=== PATIENT | female | born 1965 | race African-American/Black ===

== ENCOUNTER 2017-11-11 07:06 | Inpatient (IN) ==
[2017-11-11] MEDS ORDERED: ONDANSETRON 4 MG/2 ML VIAL IV STA (07:38)
[2017-11-11] MEDS ORDERED: MORPHINE 4 MG/1 ML VIAL IV STA (07:38)
[2017-11-11 08:30] LABS: Basophils # 0.1 10*3/uL (0.0-0.2); Basophils % 0.5 % (0.0-0.8); Eosinophils # 0.1 10*3/uL (0.0-0.87); Eosinophils % 0.6 % (0.00-10.9); Hematocrit 50.6 VOL% (35.7-47.0); Hemoglobin 16.2 GM/DL (12.0-16.0); Immature Granulocytes Absolute 0.15 #; Mean Corpuscular Hemoglobin 28 PG (27-34); Mean Corpuscular Volume 87.1 FL (87-102); Mean Platelet Volume 10.1 FL (9.6-12.0); Monocytes # 1.3 10*3/uL (0.11-0.8); NRBC # 0.02 10*3/uL; Neutrophils # 11.8 10*3/uL (1.4-7.4); Neutrophils % 81.9 % (38.7-73.9); Platelet Count 228 T/CUMM (130-400); Red Blood Count 5.81 MC/CUMM (3.8-5.5); Red Cell Distribution Width 21.8 % (9.3-17.3); White Blood Count 14.4 T/CUMM (4-12)
[2017-11-11 08:48] LABS: Albumin 2.3 G/DL (3.4-5.0); Apearance,Urine CLOUDY (Clear); Bacteria,Urine Many /HPF (Few); Bilirubin,Total 0.6 MG/DL (0.2-1.0); Bilirubin,Urine Negative (Negative); Blood, Urine Small mg/dL (Negative); Calcium 9.1 MG/DL (8.5-10.1); Glucose,Urine (UA) Negative (Negative); Granular Casts,Urine 35 /LPF (0-1); Ketones,Urine Negative (Negative); Nitrite,Urine Positive (Negative); Osmolality,Calculated 284.8 MOS/KG (273-304); Potassium 5.2 MMOL/L (3.5-5.1); Protein,Urine 100 MG/DL; RBC,Urine 16 /HPF (0-4); Total Protein 7.7 G/DL (6.4-8.3); Urine Color Yellow (Yellow); Urine Urobilinogen < 2.0 EU/DL (0.2-1.0); WBC,Urine 585 /HPF (0-6)
[2017-11-11 08:52] LABS: Eosinophils 1 % (0-10); Hypochromasia Slight; Lymphocytes 8 % (20-55); Microcytosis Slight; Platelet Estimate Adequate; Segmented Neutrophils 85 % (50-85); Total Cells Counted 100
[2017-11-11] MEDS ORDERED: NICOTINE 21 MG/24 HR PATCH TRANSDERM PRN (09:25)
[2017-11-11] MEDS ORDERED: PROMETHAZINE 25 MG/1 ML VIAL IM PRN (09:25)
[2017-11-11] MEDS ORDERED: ONDANSETRON 4 MG/2 ML VIAL IV PRN (09:25)
[2017-11-11] MEDS ORDERED: ACETAMINOPHEN 325 MG TABLET PO PRN (09:25)
[2017-11-11] MEDS ORDERED: diphenhydrAMINE CAP 25 MG CAPSULE PO PRN (09:25)
[2017-11-11] MEDS ORDERED: LEVOFLOXACIN INJ 500 MG in PREMIX 1 EACH IV STA (09:28)
[2017-11-11] MEDS ORDERED: LEVOFLOXACIN INJ 100 ML IV ONE (10:18)
[2017-11-11] MEDS: SODIUM CHLORIDE 0.9% 1,000 ML IV SCH (11:45)
[2017-11-11] MEDS: PANTOPRAZOLE 40 MG TABLET PO SCH (11:45)
[2017-11-11] MEDS: ENOXAPARIN 30 MG/0.3 ML SYRINGE SUBCUT SCH (11:45)
[2017-11-11] MEDS: FUROSEMIDE 40 MG TABLET PO SCH (16:03)
[2017-11-11] MEDS: CARVEDILOL 25 MG TABLET PO SCH (20:32)
[2017-11-11] MEDS ORDERED: POTASSIUM CHLORIDE 20 MEQ TABLET PO SCH (21:00)
[2017-11-12 05:52] LABS: Basophils # 0.1 10*3/uL (0.0-0.2); Basophils % 0.3 % (0.0-0.8); Eosinophils % 0.1 % (0.00-10.9); Hematocrit 46.9 VOL% (35.7-47.0); Immature Granulocytes % 1.1 %; Immature Granulocytes Absolute 0.19 #; Lymphocytes # 1.1 10*3/uL (1.4-4.0); Lymphocytes % 6.5 % (21.3-54.2); Mean Corpuscular Hemoglobin 28 PG (27-34); Mean Corpuscular Volume 86.5 FL (87-102); Monocytes # 1.5 10*3/uL (0.11-0.8); Monocytes % 8.8 % (1.7-12.7); Neutrophils # 14.6 10*3/uL (1.4-7.4); Neutrophils % 83.2 % (38.7-73.9); Platelet Count 225 T/CUMM (130-400); Red Blood Count 5.42 MC/CUMM (3.8-5.5); Red Cell Distribution Width 21.9 % (9.3-17.3); White Blood Count 17.5 T/CUMM (4-12)
[2017-11-12 06:30] LABS: Alanine Aminotransferase < 6 U/L (13-56); Alkaline Phosphatase 111 U/L (45-117); Aspartate Amino Transferase 8 U/L (0-37); Blood Urea Nitrogen 46 MG/DL (7-18); Calcium 8.6 MG/DL (8.5-10.1); Glucose 100 MG/DL (74-106); Potassium 5.6 MMOL/L (3.5-5.1); Sodium 136 MMOL/L (136-145); Total Protein 6.9 G/DL (6.4-8.3)
[2017-11-12 06:37] LABS: Band Neutrophils 3 % (0-10); Lymphocytes 7 % (20-55); Segmented Neutrophils 86 % (50-85); Total Cells Counted 100
[2017-11-12 06:38] LABS: Hypochromasia 1+; Microcytosis 1+
[2017-11-12 06:39] LABS: Platelet Estimate Adequate
[2017-11-12] MEDS: ASPIRIN CHEW 81 MG TABLET PO SCH (08:24)
[2017-11-12] MEDS: CARVEDILOL 25 MG TABLET PO SCH ×2 (08:24→20:54)
[2017-11-12] MEDS: PANTOPRAZOLE 40 MG TABLET PO SCH (08:24)
[2017-11-12] MEDS: FUROSEMIDE 40 MG TABLET PO SCH ×2 (08:25→15:09)
[2017-11-12] MEDS: DOXAZOSIN 1 MG TABLET PO SCH (08:25)
[2017-11-12] MEDS: ISOSORBIDE MONONITRATE 60 MG TABLET PO SCH (08:25)
[2017-11-12] MEDS: LEVOFLOXACIN INJ 250 MG in PREMIX 1 EACH IV SCH (08:28)
[2017-11-12] MEDS: ENOXAPARIN 30 MG/0.3 ML SYRINGE SUBCUT SCH (08:30)
[2017-11-12] MEDS: SODIUM CHLORIDE 0.9% 1,000 ML IV SCH (17:34)
[2017-11-13] MEDS: SODIUM CHLORIDE 0.9% 1,000 ML IV SCH ×2 (05:09→19:30)
[2017-11-13] MEDS: ISOSORBIDE MONONITRATE 60 MG TABLET PO SCH (11:31)
[2017-11-13] MEDS: PANTOPRAZOLE 40 MG TABLET PO SCH (11:31)
[2017-11-13] MEDS: DOXAZOSIN 1 MG TABLET PO SCH (11:31)
[2017-11-13] MEDS: FUROSEMIDE 40 MG TABLET PO SCH ×2 (11:31→17:53)
[2017-11-13] MEDS: ENOXAPARIN 30 MG/0.3 ML SYRINGE SUBCUT SCH (11:32)
[2017-11-13] MEDS: CARVEDILOL 25 MG TABLET PO SCH ×2 (11:32→20:58)
[2017-11-13] MEDS: ASPIRIN CHEW 81 MG TABLET PO SCH (11:33)
[2017-11-13 13:01] LABS: Basophils % 0.2 % (0.0-0.8); Eosinophils % 0.2 % (0.00-10.9); Hematocrit 44.6 VOL% (35.7-47.0); Hemoglobin 14.4 GM/DL (12.0-16.0); Immature Granulocytes % 1.5 %; Immature Granulocytes Absolute 0.28 #; Lymphocytes # 1.3 10*3/uL (1.4-4.0); Lymphocytes % 6.9 % (21.3-54.2); Mean Corpuscular HGB Conc 32.3 GM/DL (32-36); Mean Corpuscular Hemoglobin 28 PG (27-34); Mean Corpuscular Volume 85.9 FL (87-102); Mean Platelet Volume 9.3 FL (9.6-12.0); Monocytes # 1.5 10*3/uL (0.11-0.8); NRBC # 0.07 10*3/uL; Neutrophils # 15.6 10*3/uL (1.4-7.4); Neutrophils % 83.2 % (38.7-73.9); Platelet Count 221 T/CUMM (130-400); Red Blood Count 5.19 MC/CUMM (3.8-5.5); Red Cell Distribution Width 21.1 % (9.3-17.3); White Blood Count 18.8 T/CUMM (4-12)
[2017-11-13 13:19] LABS: Calcium 8.2 MG/DL (8.5-10.1); Osmolality,Calculated 280.4 MOS/KG (273-304); Potassium 5.5 MMOL/L (3.5-5.1)
[2017-11-14 05:59] LABS: Basophils % 0.3 % (0.0-0.8); Eosinophils # 0.1 10*3/uL (0.0-0.87); Eosinophils % 0.3 % (0.00-10.9); Hematocrit 41.5 VOL% (35.7-47.0); Hemoglobin 13.8 GM/DL (12.0-16.0); Immature Granulocytes % 1.5 %; Immature Granulocytes Absolute 0.23 #; Lymphocytes # 1.2 10*3/uL (1.4-4.0); Lymphocytes % 7.4 % (21.3-54.2); Mean Corpuscular HGB Conc 33.3 GM/DL (32-36); Mean Corpuscular Hemoglobin 28 PG (27-34); Mean Corpuscular Volume 83.5 FL (87-102); Mean Platelet Volume 10.6 FL (9.6-12.0); Monocytes # 1.3 10*3/uL (0.11-0.8); NRBC # 0.04 10*3/uL; Neutrophils # 13.1 10*3/uL (1.4-7.4); Neutrophils % 82.5 % (38.7-73.9); Platelet Count 250 T/CUMM (130-400); Red Blood Count 4.97 MC/CUMM (3.8-5.5); White Blood Count 15.8 T/CUMM (4-12)
[2017-11-14 06:23] LABS: Calcium 8.6 MG/DL (8.5-10.1); Osmolality,Calculated 283.1 MOS/KG (273-304); Potassium 4.9 MMOL/L (3.5-5.1)
[2017-11-14] MEDS: ISOSORBIDE MONONITRATE 60 MG TABLET PO SCH (10:07)
[2017-11-14] MEDS: DOXAZOSIN 1 MG TABLET PO SCH (10:07)
[2017-11-14] MEDS: PANTOPRAZOLE 40 MG TABLET PO SCH (10:07)
[2017-11-14] MEDS: CARVEDILOL 25 MG TABLET PO SCH ×2 (10:08→21:19)
[2017-11-14] MEDS: LEVOFLOXACIN INJ 250 MG in PREMIX 1 EACH IV SCH (10:08)
[2017-11-14] MEDS: ENOXAPARIN 30 MG/0.3 ML SYRINGE SUBCUT SCH (10:08)
[2017-11-14] MEDS: FUROSEMIDE 40 MG TABLET PO SCH ×2 (10:11→15:03)
[2017-11-14] MEDS: ASPIRIN CHEW 81 MG TABLET PO SCH (10:11)
[2017-11-14] MEDS: SODIUM CHLORIDE 0.9% 1,000 ML IV SCH (14:56)
[2017-11-15] MEDS: DOXAZOSIN 1 MG TABLET PO SCH (09:29)
[2017-11-15] MEDS: ASPIRIN CHEW 81 MG TABLET PO SCH (09:30)
[2017-11-15] MEDS: FUROSEMIDE 40 MG TABLET PO SCH ×2 (09:30→18:09)
[2017-11-15] MEDS: ISOSORBIDE MONONITRATE 60 MG TABLET PO SCH (09:30)
[2017-11-15] MEDS: CARVEDILOL 25 MG TABLET PO SCH ×2 (09:30→20:16)
[2017-11-15] MEDS: PANTOPRAZOLE 40 MG TABLET PO SCH (09:31)
[2017-11-15] MEDS: ENOXAPARIN 30 MG/0.3 ML SYRINGE SUBCUT SCH (09:31)
[2017-11-15] MEDS: SODIUM CHLORIDE 0.9% 1,000 ML IV SCH (16:17)
[2017-11-15] MEDS ORDERED: AZTREONAM 2,000 MG in SYRINGE 1 EACH IV ONE (16:30)
[2017-11-15] MEDS: NYSTATIN 500,000 UNIT/5 ML UDCUP SWISH/SWAL SCH ×2 (18:09→20:16)
[2017-11-16] MEDS: AZTREONAM IV SCH ×3 (00:35→16:05)
[2017-11-16] MEDS: SODIUM CHLORIDE 0.9% 1,000 ML IV SCH ×2 (01:05→12:55)
[2017-11-16 06:16] LABS: Calcium 8.6 MG/DL (8.5-10.1); Osmolality,Calculated 289.5 MOS/KG (273-304); Potassium 4.3 MMOL/L (3.5-5.1)
[2017-11-16 09:11] LABS: Basophils % 0.4 % (0.0-0.8); Eosinophils # 0.1 10*3/uL (0.0-0.87); Eosinophils % 1.1 % (0.00-10.9); Hematocrit 42.1 VOL% (35.7-47.0); Hemoglobin 13.5 GM/DL (12.0-16.0); Immature Granulocytes % 0.6 %; Immature Granulocytes Absolute 0.05 #; Lymphocytes % 10.8 % (21.3-54.2); Mean Corpuscular HGB Conc 32.1 GM/DL (32-36); Mean Corpuscular Hemoglobin 27 PG (27-34); Mean Corpuscular Volume 84.9 FL (87-102); Mean Platelet Volume 9.2 FL (9.6-12.0); Monocytes # 1.1 10*3/uL (0.11-0.8); Monocytes % 12.6 % (1.7-12.7); NRBC # 0.04 10*3/uL; Neutrophils # 6.7 10*3/uL (1.4-7.4); Neutrophils % 74.5 % (38.7-73.9); Platelet Count 207 T/CUMM (130-400); Red Blood Count 4.96 MC/CUMM (3.8-5.5); White Blood Count 8.9 T/CUMM (4-12)
[2017-11-16] MEDS: FUROSEMIDE 40 MG TABLET PO SCH ×2 (09:19→16:05)
[2017-11-16] MEDS: ISOSORBIDE MONONITRATE 60 MG TABLET PO SCH (09:19)
[2017-11-16] MEDS: DOXAZOSIN 1 MG TABLET PO SCH (09:19)
[2017-11-16] MEDS: ASPIRIN CHEW 81 MG TABLET PO SCH (09:19)
[2017-11-16] MEDS: ENOXAPARIN 30 MG/0.3 ML SYRINGE SUBCUT SCH (09:19)
[2017-11-16] MEDS: NYSTATIN 500,000 UNIT/5 ML UDCUP SWISH/SWAL SCH ×4 (09:19→20:10)
[2017-11-16] MEDS: PANTOPRAZOLE 40 MG TABLET PO SCH (09:19)
[2017-11-16] MEDS: CARVEDILOL 25 MG TABLET PO SCH ×2 (09:19→20:10)
[2017-11-16] MEDS: LEVOFLOXACIN INJ 250 MG in PREMIX 1 EACH IV SCH (09:20)
[2017-11-17] MEDS: AZTREONAM IV SCH ×3 (04:26→19:59)
[2017-11-17 06:41] LABS: Basophils # 0.1 10*3/uL (0.0-0.2); Basophils % 0.6 % (0.0-0.8); Eosinophils # 0.2 10*3/uL (0.0-0.87); Hematocrit 40.1 VOL% (35.7-47.0); Hemoglobin 12.8 GM/DL (12.0-16.0); Immature Granulocytes % 1.4 %; Immature Granulocytes Absolute 0.12 #; Lymphocytes % 11.1 % (21.3-54.2); Mean Corpuscular HGB Conc 31.9 GM/DL (32-36); Mean Corpuscular Hemoglobin 28 PG (27-34); Mean Corpuscular Volume 86.4 FL (87-102); Mean Platelet Volume 9.5 FL (9.6-12.0); Monocytes # 1.2 10*3/uL (0.11-0.8); Monocytes % 14.3 % (1.7-12.7); NRBC # 0.03 10*3/uL; Neutrophils # 6.2 10*3/uL (1.4-7.4); Neutrophils % 70.6 % (38.7-73.9); Platelet Count 192 T/CUMM (130-400); Red Blood Count 4.64 MC/CUMM (3.8-5.5); Red Cell Distribution Width 21.1 % (9.3-17.3); White Blood Count 8.7 T/CUMM (4-12)
[2017-11-17] MEDS: SODIUM CHLORIDE 0.9% 1,000 ML IV SCH (09:29)
[2017-11-17] MEDS: ENOXAPARIN 30 MG/0.3 ML SYRINGE SUBCUT SCH (09:30)
[2017-11-17] MEDS: ASPIRIN CHEW 81 MG TABLET PO SCH (09:30)
[2017-11-17] MEDS: CARVEDILOL 25 MG TABLET PO SCH ×2 (09:30→20:17)
[2017-11-17] MEDS: FUROSEMIDE 40 MG TABLET PO SCH ×2 (09:30→17:16)
[2017-11-17] MEDS: ISOSORBIDE MONONITRATE 60 MG TABLET PO SCH (09:30)
[2017-11-17] MEDS: DOXAZOSIN 1 MG TABLET PO SCH (09:30)
[2017-11-17] MEDS: NYSTATIN 500,000 UNIT/5 ML UDCUP SWISH/SWAL SCH ×4 (09:30→20:16)
[2017-11-17] MEDS: PANTOPRAZOLE 40 MG TABLET PO SCH (09:30)
[2017-11-18] MEDS: AZTREONAM IV SCH ×3 (04:10→20:42)
[2017-11-18] MEDS: SODIUM CHLORIDE 0.9% 1,000 ML IV SCH (04:10)
[2017-11-18 05:12] LABS: Basophils # 0.1 10*3/uL (0.0-0.2); Basophils % 0.8 % (0.0-0.8); Eosinophils # 0.2 10*3/uL (0.0-0.87); Eosinophils % 2.3 % (0.00-10.9); Hematocrit 39.7 VOL% (35.7-47.0); Hemoglobin 12.7 GM/DL (12.0-16.0); Immature Granulocytes Absolute 0.07 #; Lymphocytes % 13.9 % (21.3-54.2); Mean Corpuscular Hemoglobin 27 PG (27-34); Mean Corpuscular Volume 85.7 FL (87-102); Mean Platelet Volume 9.8 FL (9.6-12.0); Monocytes # 1.1 10*3/uL (0.11-0.8); Monocytes % 14.6 % (1.7-12.7); NRBC # 0.02 10*3/uL; Neutrophils % 67.4 % (38.7-73.9); Platelet Count 194 T/CUMM (130-400); Red Blood Count 4.63 MC/CUMM (3.8-5.5); Red Cell Distribution Width 20.7 % (9.3-17.3); White Blood Count 7.4 T/CUMM (4-12)
[2017-11-18] MEDS: ISOSORBIDE MONONITRATE 60 MG TABLET PO SCH (08:59)
[2017-11-18] MEDS: DOXAZOSIN 1 MG TABLET PO SCH (08:59)
[2017-11-18] MEDS: CARVEDILOL 25 MG TABLET PO SCH ×2 (08:59→20:31)
[2017-11-18] MEDS: ASPIRIN CHEW 81 MG TABLET PO SCH (08:59)
[2017-11-18] MEDS: FUROSEMIDE 40 MG TABLET PO SCH ×2 (08:59→15:00)
[2017-11-18] MEDS: NYSTATIN 500,000 UNIT/5 ML UDCUP SWISH/SWAL SCH ×4 (08:59→20:32)
[2017-11-18] MEDS: PANTOPRAZOLE 40 MG TABLET PO SCH (08:59)
[2017-11-18] MEDS: LEVOFLOXACIN INJ 250 MG in PREMIX 1 EACH IV SCH (09:00)
[2017-11-18] MEDS: ENOXAPARIN 30 MG/0.3 ML SYRINGE SUBCUT SCH (09:01)
[2017-11-18 10:18] LABS: Calcium 8.1 MG/DL (8.5-10.1); Osmolality,Calculated 284.7 MOS/KG (273-304); Potassium 3.7 MMOL/L (3.5-5.1)
[2017-11-19] MEDS: SODIUM CHLORIDE 0.9% 1,000 ML IV SCH (03:00)
[2017-11-19] MEDS: AZTREONAM IV SCH ×2 (03:57→12:37)
[2017-11-19] MEDS: CARVEDILOL 25 MG TABLET PO SCH (09:17)
[2017-11-19] MEDS: FUROSEMIDE 40 MG TABLET PO SCH ×2 (09:17→15:01)
[2017-11-19] MEDS: NYSTATIN 500,000 UNIT/5 ML UDCUP SWISH/SWAL SCH ×2 (09:17→12:37)
[2017-11-19] MEDS: ASPIRIN CHEW 81 MG TABLET PO SCH (09:17)
[2017-11-19] MEDS: ENOXAPARIN 30 MG/0.3 ML SYRINGE SUBCUT SCH (09:17)
[2017-11-19] MEDS: DOXAZOSIN 1 MG TABLET PO SCH (09:17)
[2017-11-19] MEDS: PANTOPRAZOLE 40 MG TABLET PO SCH (09:17)
[2017-11-19] MEDS: ISOSORBIDE MONONITRATE 60 MG TABLET PO SCH (09:17)
[2017-11-19 09:25] LABS: Osmolality,Calculated 286.5 MOS/KG (273-304); Potassium 3.5 MMOL/L (3.5-5.1)
[2017-11-19 11:39] VITALS: BP 128/77
[2017-11-19] MEDS ORDERED: PHENAZOPYRIDINE 95 MG TABLET PO SCH (12:00)
== END 2017-11-19 15:50 | disposition home or self-care (01) | DRG 689 ==
LOC: EDBD → EDUNIT# → N.ED 07:06 → N.EDINP 09:24 → SUATTDRO 09:24 → N.EDINP 12:20 → N.2E 12:24
PROVIDERS: ADMIT Internal Medicine Geriatric Medicine; ATTEND Internal Medicine

== ENCOUNTER 2018-03-07 09:50 | Inpatient (IN) ==
[2018-03-07] MEDS ORDERED: ONDANSETRON 4 MG/2 ML VIAL IV STA (10:26)
[2018-03-07] MEDS ORDERED: methylPREDNISolone SOD SUC 125 MG/2 ML VIAL IV STA (10:26)
[2018-03-07] MEDS ORDERED: NITROGLYCERIN 2% OINT 1 INCH/GM PACK TOP STA (10:26)
[2018-03-07] MEDS ORDERED: ALBUTEROL/IPRATROPIUM 3 ML NEB RESP TX STA (10:26)
[2018-03-07] MEDS ORDERED: MORPHINE 4 MG/1 ML VIAL IV STA (10:26)
[2018-03-07] MEDS ORDERED: hydrALAZINE 20 MG/1 ML VIAL IV STA (10:26)
[2018-03-07] MEDS ORDERED: FUROSEMIDE 100 MG/10 ML VIAL IV STA (10:26)
[2018-03-07 10:46] LABS: Basophils # 0.1 10*3/uL (0.0-0.2); Basophils % 0.7 % (0.0-0.8); Eosinophils # 0.1 10*3/uL (0.0-0.87); Eosinophils % 1.1 % (0.00-10.9); Hemoglobin 15.9 GM/DL (12.0-16.0); Immature Granulocytes % 0.7 %; Immature Granulocytes Absolute 0.05 #; Lymphocytes # 1.3 10*3/uL (1.4-4.0); Mean Corpuscular HGB Conc 31.8 GM/DL (32-36); Mean Corpuscular Hemoglobin 28 PG (27-34); Mean Corpuscular Volume 86.7 FL (87-102); Mean Platelet Volume 10.1 FL (9.6-12.0); Monocytes # 0.9 10*3/uL (0.11-0.8); Monocytes % 11.5 % (1.7-12.7); NRBC # 0.13 10*3/uL; Platelet Count 188 T/CUMM (130-400); Red Blood Count 5.77 MC/CUMM (3.8-5.5); Red Cell Distribution Width 23.7 % (9.3-17.3); White Blood Count 7.4 T/CUMM (4-12)
[2018-03-07 10:52] LABS: INR 1.1; PT Patient Result 11.7 SECS
[2018-03-07] MEDS ORDERED: niCARdipine INJ 25 MG in SODIUM CHLORIDE 0.9% 240 ML IV PRN (11:21)
[2018-03-07] MEDS ORDERED: niCARdipine 25 MG/10 ML VIAL IV ONE (11:24)
[2018-03-07 11:25] LABS: Albumin 3.1 G/DL (3.4-5.0); Bilirubin,Total 1.6 MG/DL (0.2-1.0); Calcium 8.6 MG/DL (8.5-10.1); Osmolality,Calculated 294.8 MOS/KG (273-304); Potassium 4.4 MMOL/L (3.5-5.1); Total Protein 7.4 G/DL (6.4-8.3)
[2018-03-07 11:41] LABS: Anisocytosis 1+
[2018-03-07 11:43] LABS: Macrocytosis 1+
[2018-03-07 11:44] LABS: Polychromasia Few
[2018-03-07 11:45] LABS: Target Cells Few
[2018-03-07 11:48] LABS: Tear Drop Cells Slight
[2018-03-07 11:49] LABS: Platelet Estimate Adequate
[2018-03-07 12:01] LABS: Apearance,Urine CLEAR (Clear); Bacteria,Urine Occasional /HPF (Few); Bilirubin,Urine Negative (Negative); Blood, Urine Small mg/dL (Negative); Glucose,Urine (UA) 50 mg/dL (Negative); Ketones,Urine Negative (Negative); Nitrite,Urine Negative (Negative); Protein,Urine 100 MG/DL; RBC,Urine 2 /HPF (0-4); Urine Color Yellow (Yellow); Urine Specific Gravity 1.008 (1.001-1.035); Urine Urobilinogen < 2.0 EU/DL (0.2-1.0); WBC,Urine 1 /HPF (0-6)
[2018-03-07] MEDS ORDERED: ACETAMINOPHEN 325 MG TABLET PO PRN (12:06)
[2018-03-07] MEDS ORDERED: ZALEPLON 5 MG CAPSULE PO PRN (12:06)
[2018-03-07] MEDS ORDERED: MORPHINE 4 MG/1 ML VIAL IV PRN (12:06)
[2018-03-07] MEDS ORDERED: ONDANSETRON 4 MG/2 ML VIAL IV PRN (12:06)
[2018-03-07] MEDS ORDERED: NIFEdipine 10 MG CAPSULE PO PRN (13:09)
[2018-03-07] MEDS: ASPIRIN CHEW 81 MG TABLET PO SCH (13:23)
[2018-03-07] MEDS: CARVEDILOL 25 MG TABLET PO SCH ×2 (13:50→20:36)
[2018-03-07] MEDS: ISOSORBIDE MONONITRATE 30 MG TABLET PO SCH (13:50)
[2018-03-07] MEDS: DOXAZOSIN 1 MG TABLET PO SCH (13:50)
[2018-03-07] MEDS: PANTOPRAZOLE 40 MG TABLET PO SCH (13:50)
[2018-03-07] MEDS: POTASSIUM CHLORIDE 20 MEQ TABLET PO SCH ×2 (13:50→20:36)
[2018-03-07] MEDS: ENOXAPARIN 30 MG/0.3 ML SYRINGE SUBCUT SCH (13:54)
[2018-03-07] MEDS ORDERED: FUROSEMIDE 40 MG TABLET PO SCH (16:00)
[2018-03-07] MEDS: PHENAZOPYRIDINE 95 MG TABLET PO SCH ×2 (16:00→20:36)
[2018-03-08 04:17] LABS: Basophils % 0.3 % (0.0-0.8); Hematocrit 41.3 VOL% (35.7-47.0); Hemoglobin 13.5 GM/DL (12.0-16.0); Immature Granulocytes % 0.5 %; Immature Granulocytes Absolute 0.02 #; Lymphocytes # 0.6 10*3/uL (1.4-4.0); Lymphocytes % 15.6 % (21.3-54.2); Mean Corpuscular HGB Conc 32.7 GM/DL (32-36); Mean Corpuscular Hemoglobin 28 PG (27-34); Mean Corpuscular Volume 84.3 FL (87-102); Monocytes # 0.2 10*3/uL (0.11-0.8); NRBC # 0.06 10*3/uL; Neutrophils # 3.1 10*3/uL (1.4-7.4); Neutrophils % 77.6 % (38.7-73.9); Platelet Count 151 T/CUMM (130-400); Red Cell Distribution Width 22.5 % (9.3-17.3)
[2018-03-08 04:43] LABS: Hypochromasia 1+; Target Cells Slight
[2018-03-08 04:44] LABS: Microcytosis 1+
[2018-03-08 04:45] LABS: Anisocytosis 1+
[2018-03-08 04:46] LABS: Platelet Estimate Adequate
[2018-03-08 04:54] LABS: Calcium 7.5 MG/DL (8.5-10.1); Osmolality,Calculated 293.1 MOS/KG (273-304); Potassium 4.2 MMOL/L (3.5-5.1); Troponin I 0.028 NG/ML (0.00-0.045)
[2018-03-08 06:09] LABS: Risk Ratio 4.1; Thyroid Stimulating Hormone 0.201 uIU/ml (0.358-3.74); VLDL CHOLESTEROL 19.4 MG/DL
[2018-03-08] MEDS ORDERED: FUROSEMIDE 100 MG/10 ML VIAL IV SCH (08:00)
[2018-03-08] MEDS: POTASSIUM CHLORIDE 20 MEQ TABLET PO SCH ×2 (09:02→20:46)
[2018-03-08] MEDS: ASPIRIN CHEW 81 MG TABLET PO SCH (09:02)
[2018-03-08] MEDS: PHENAZOPYRIDINE 95 MG TABLET PO SCH ×3 (09:02→20:39)
[2018-03-08] MEDS: PANTOPRAZOLE 40 MG TABLET PO SCH (09:03)
[2018-03-08] MEDS: DOXAZOSIN 1 MG TABLET PO SCH (09:03)
[2018-03-08] MEDS: ISOSORBIDE MONONITRATE 30 MG TABLET PO SCH (09:03)
[2018-03-08] MEDS ORDERED: MAGNESIUM SULF RIDER 2 GM in PREMIX 1 EACH IV ONE (09:30)
[2018-03-08] MEDS: CARVEDILOL 25 MG TABLET PO SCH (09:38)
[2018-03-08] MEDS: CARVEDILOL 6.25 MG TABLET PO SCH ×2 (13:08→20:46)
[2018-03-08] MEDS: ENOXAPARIN 30 MG/0.3 ML SYRINGE SUBCUT SCH (13:08)
[2018-03-08] MEDS: FUROSEMIDE 80 MG TABLET PO SCH (16:00)
[2018-03-08] MEDS ORDERED: NIFEdipine 10 MG CAPSULE PO PRN (22:00)
[2018-03-09 04:43] VITALS: BP 132/84
[2018-03-09 04:48] LABS: Calcium 7.7 MG/DL (8.5-10.1); Osmolality,Calculated 289.4 MOS/KG (273-304); Potassium 4.2 MMOL/L (3.5-5.1)
[2018-03-09] MEDS: PHENAZOPYRIDINE 95 MG TABLET PO SCH (08:50)
[2018-03-09] MEDS: PANTOPRAZOLE 40 MG TABLET PO SCH (08:50)
[2018-03-09] MEDS: DOXAZOSIN 1 MG TABLET PO SCH (08:50)
[2018-03-09] MEDS: ASPIRIN CHEW 81 MG TABLET PO SCH (08:50)
[2018-03-09] MEDS: FUROSEMIDE 80 MG TABLET PO SCH (08:51)
[2018-03-09] MEDS: POTASSIUM CHLORIDE 20 MEQ TABLET PO SCH (08:51)
[2018-03-09] MEDS: CARVEDILOL 6.25 MG TABLET PO SCH (09:43)
== END 2018-03-09 11:28 | disposition home or self-care (01) | DRG 291 ==
LOC: N.ED 09:50 → N.EDINP 12:03 → N.CC 12:35
PROVIDERS: ADMIT Internal Medicine; ATTEND Internal Medicine